=== PATIENT | male | born 1995 | race Caucasian/White ===

== ENCOUNTER 2017-08-25 08:41 | Emergency (ER) | payer OTHER ==
[2017-08-25] MEDS: ERYTHROMYCIN OPHTH OINT OU (09:21)
[2017-08-25] MEDS: AUGMENTIN 875 MG TAB PO (09:21)
== END 2017-08-25 09:47 | disposition home or self-care (01) ==
LOC: M ED 08:41
DX: L01.00 Impetigo, unspecified (principal); H10.9 Unspecified conjunctivitis; H57.8 Other specified disorders of eye and adnexa
CPT/HCPCS: 99283